=== PATIENT | male | born 1985 | race Caucasian/White ===

== ENCOUNTER 2016-11-15 00:12 | Day surgery (SDC) | payer BC, OTHER ==
[2016-11-15] MEDS ORDERED: HYDROmorphone 1 MG/ML Syringe IVPUSH ONE (00:42)
[2016-11-15] MEDS ORDERED: Ondansetron 4 MG/2 ML SDV IVPUSH ONE (00:42)
[2016-11-15] MEDS ORDERED: Sodium Chloride 0.9% 1,000 ML IV SCH (00:45)
--- NOTE | 2016-11-15 00:49 | EDM.PDOC ---
ED HPI GENERAL MEDICAL PROBLEM - General Chief Complaint: Abdominal Pain Stated Complaint: right side pains Time Seen by Provider: 11/15/16 00:20 Source of Information: Reports: Patient, Family (), RN Notes Reviewed History Limitations: Reports: No Limitations - History of Present Illness INITIAL COMMENTS - FREE TEXT/NARRATIVE: The patient states that he went to bed around 21:00 because he had some abdominal discomfort and nausea. He states that he woke around 23:30 with right lower quadrant pain, initially dull in character, but it has become sharp. The pain is present even if he remains perfectly still, but is made worse if he stands, or with movement. He states that he has had shaking chills, but no known fever. He also reports some nonbloody diarrhea since yesterday. No urinary symptoms. No prior similar symptoms. The patient has not tried any home remedies or medicines. The patient's last oral solid food was at 19:00 tonight, his last oral liquid was at 21:00 tonight. The patient's PCP is Dr. Rhonda Chang. Right Lower Abdomen Pain Score (Numeric/FACES): 8 - Related Data Allergies Allergy/AdvReac Type Severity Reaction Status Date / Time No Known Allergies Allergy Verified 11/15/16 00:23 Home Meds: Home Meds Eszopiclone [Lunesta] 1 mg PO BEDTIME PRN 11/15/16 [History] Past Medical History HEENT History: Reports: Impaired Vision Cardiovascular History: Reports: Other (See Below) (Elevated triglycerides) Dermatologic History: Reports: Eczema - Past Surgical History HEENT Surgical History: Reports: Naso-Sinus Surgery, Oral Surgery ([place] teeth extraction), Other (See Below) (Maxillofacial reconstructive surgery) GI Surgical History: Reports: Hernia, Abdominal (umbilical) Musculoskeletal Surgical History: Reports: Shoulder Surgery (right, arthroscopic ) Social & Family History - Family History Family Medical History: Noncontributory - Tobacco Use Smoking Status *Q: Never Smoker - Caffeine Use Caffeine Use: Reports: Soda - Alcohol Use Alcohol Use History: Yes Alcohol Use Frequency: Socially - Recreational Drug Use Recreational Drug Use: No - Living Situation & Occupation Living situation: Reports: , with Spouse Occupation: Employed (industrial relations director) ED ROS GENERAL - Review of Systems Review Of Systems: See Below Constitutional: Reports: No Symptoms HEENT: Reports: No Symptoms Respiratory: Reports: No Symptoms Cardiovascular: Reports: No Symptoms Endocrine: Reports: No Symptoms GI/Abdominal: Reports: No Symptoms : Reports: No Symptoms Musculoskeletal: Reports: No Symptoms Skin: Reports: No Symptoms Neurological: Reports: No Symptoms Psychiatric: Reports: No Symptoms Hematologic/Lymphatic: Reports: No Symptoms Immunologic: Reports: No Symptoms ED EXAM, GI/ABD - Physical Exam Exam: See Below Exam Limited By: No Limitations General Appearance: Alert, WD/WN, No Apparent Distress Eyes: Bilateral: Normal Appearance, EOMI Ears: Normal External Exam, Hearing Grossly Normal Nose: Normal Inspection, No Blood Throat/Mouth: Normal Inspection, Normal Lips, Normal Voice, No Airway Compromise Head: Atraumatic, Normocephalic Neck: Normal Inspection, Full Range of Motion Respiratory/Chest: No Respiratory Distress, Lungs Clear, Normal Breath Sounds, No Accessory Muscle Use Cardiovascular: Normal Peripheral Pulses, Regular Rate, Rhythm, No Gallop, No JVD, No Murmur, No Rub GI/Abdominal Exam: Soft, Non-Tender, No Organomegaly, No Distention, No Abnormal Bruit, No Mass, Pelvis Stable, Guarding, Tender (Significant, with involuntary guarding, to the right lower quadrant only. Nontender elsewhere, however, Rovsing sign is present. No rebound tenderness. Obturator sign negative. Psoas sign negative. Heel drop sign positive.), Abnormal Bowel Sounds (decreased). No: Rigid, Rebound (Male) Exam: Deferred Rectal (Males) Exam: Deferred Back Exam: Normal Inspection, Full Range of Motion. No: CVA Tenderness (L), CVA Tenderness (R) Extremities: Normal Inspection, Normal Range of Motion, No Pedal Edema, Normal Capillary Refill Neurological: Alert, Oriented, Normal Cognition, No Motor/Sensory Deficits Psychiatric: Normal Affect Skin Exam: Warm, Dry, Intact, Normal Color, No Rash Course - Vital Signs Last Recorded V/S: Last Vital Signs Temp 37.1 C 11/15/16 00:19 Pulse 101 H 11/15/16 00:19 Resp 18 11/15/16 00:19 BP 159/107 H 11/15/16 00:19 Pulse Ox 97 11/15/16 00:19 - Orders/Labs/Meds Orders: Active Orders 24 hr Category Date Time Status Abdomen Pelvis w Cont [CT] Stat Exams 11/15/16 00:42 Taken Sodium Chloride 0.9% [Normal Saline] 1,000 ml Med 11/15/16 00:45 Active IV ASDIRECTED Sodium Chloride 0.9% [Saline Flush] Med 11/15/16 02:05 Active 10 ml FLUSH ONETIME PRN Medication Orders Sodium Chloride (Normal Saline) 1,000 mls @ 150 mls/hr IV ASDIRECTED TEDDY Last Admin: 11/15/16 01:09 Dose: 150 mls/hr Sodium Chloride (Saline Flush) 10 ml FLUSH ONETIME PRN PRN Reason: IV Flush Last Admin: 11/15/16 02:25 Dose: 10 ml Labs: Laboratory Tests 11/15/16 11/15/16 11/15/16 Range/Units 01:00 01:00 02:05 WBC 8.78 (4.23-9.07) K/mm3 RBC 4.87 (4.63-6.08) M/mm3 Hgb 15.2 (13.7-17.5) gm/L Hct 43.0 (40.1-51.0) % MCV 88.3 (79.0-92.2) fl MCH 31.2 (25.7-32.2) pg MCHC 35.3 (32.2-35.5) g/dl RDW Std Deviation 41.9 (35.1-43.9) fL Plt Count 212 (163-337) K/mm3 MPV 9.6 (9.4-12.3) fl Neutrophils % (Manual) 75 H (40-60) % Band Neutrophils % 9 (0-10) % Lymphocytes % (Manual) 12 L (20-40) % Atypical Lymphs % 0 % Monocytes % (Manual) 2 (2-10) % Eosinophils % (Manual) 1 (0.8-7.0) % Basophils % (Manual) 1 (0.2-1.2) Platelet Estimate Adequate Plt Morphology Comment Normal RBC Morph Comment Normal Sodium 140 (136-145) mEq/L Potassium 3.6 (3.5-5.1) mEq/L Chloride 105 (98-107) mEq/L Carbon Dioxide 21 (21-32) mEq/L Anion Gap 17.6 H (5-15) BUN 17 (7-18) mg/dL Creatinine 1.2 (0.7-1.3) mg/dL Est Cr Clr Drug Dosing 90.01 mL/min Estimated GFR (MDRD) > 60 (>60) mL/min BUN/Creatinine Ratio 14.2 (14-18) Glucose 117 H (74-106) mg/dL Calcium 9.2 (8.5-10.1) mg/dL Total Bilirubin 0.9 (0.2-1.0) mg/dL AST 42 H (15-37) U/L ALT 62 (16-63) U/L Alkaline Phosphatase 61 (46-116) U/L Total Protein 7.4 (6.4-8.2) g/dl Albumin 3.9 (3.4-5.0) g/dl Globulin 3.5 gm/dL Albumin/Globulin Ratio 1.1 (1-2) Lipase 171 (73-393) U/L Urine Color Yellow (Yellow) Urine Appearance Clear (Clear) Urine pH 5.5 (5.0-8.0) Ur Specific [place] > or = 1.030 (1.005-1.030) Urine Protein Negative (Negative) Urine Glucose (UA) Negative (Negative) Urine Ketones Negative (Negative) Urine Occult Blood Negative (Negative) Urine Nitrite Negative (Negative) Urine Bilirubin Negative (Negative) Urine Urobilinogen 0.2 (0.2-1.0) Ur Leukocyte Esterase Negative (Negative) Urine RBC 0-5 (0-5) /hpf Urine WBC 0-5 (0-5) /hpf Ur Epithelial Cells Not seen (0-5) /hpf Urine Bacteria Not seen (FEW) /hpf Urine Mucus Many H (FEW) /hpf Meds: Medications Generic Name Dose Route Start Last Admin Trade Name Freq PRN Reason Stop Dose Admin Sodium Chloride 1,000 mls @ 150 mls/hr 11/15/16 00:45 11/15/16 01:09 Normal Saline IV 150 mls/hr ASDIRECTED TEDDY Administration Sodium Chloride 10 ml 11/15/16 02:05 11/15/16 02:25 Saline Flush FLUSH 10 ml ONETIME PRN Administration IV Flush Discontinued Medications Generic Name Dose Route Start Last Admin Trade Name Freq PRN Reason Stop Dose Admin Diatrizoate Meglum/Diatrizoate Sod 90 ml 11/15/16 02:05 11/15/16 02:25 Gastrografin 37% PO 11/15/16 02:06 90 ml ONETIME ONE Administration Hydromorphone HCl 1 mg 11/15/16 00:42 11/15/16 01:09 Dilaudid IVPUSH 11/15/16 00:43 0.5 mg ONETIME ONE Administration Iopamidol 125 ml 11/15/16 02:05 11/15/16 02:25 Isovue-300 (61%) IVPUSH 11/15/16 02:06 125 ml ONETIME ONE Administration Ondansetron HCl 4 mg 11/15/16 00:42 11/15/16 01:09 Zofran IVPUSH 11/15/16 00:43 4 mg ONETIME ONE Administration - Re-Assessments/Exams Free Text/Narrative Re-Assessment/Exam: 11/15/16 02:45 CT of the abdomen and pelvis with oral and IV contrast is read by [facility] as "Mild, uncomplicated acute appendicitis." 11/15/16 02:[address] Guerra at 02:48. He would like us to give the patient Mefoxin 2 g and Flagyl 500 mg. He would like us to call the or crew in, with the intention of taking the patient to the operating room for appendectomy tonight. The above was then discussed with the patient and his . They are agreeable with the plan. Departure - Departure Time of Disposition: 02:55 Disposition: DC/Tfer to [facility] Condition: Fair Clinical Impression: Acute appendicitis - Discharge Information - My Orders Last 24 Hours: My Active Orders 11/15/16 00:42 Abdomen Pelvis w Cont [CT] Stat 11/15/16 00:45 Sodium Chloride 0.9% [Normal Saline] 1,000 ml IV ASDIRECTED 11/15/16 02:05 Sodium Chloride 0.9% [Saline Flush] 10 ml FLUSH ONETIME PRN - Assessment/Plan Last 24 Hours: My Active Orders 11/15/16 00:42 Abdomen Pelvis w Cont [CT] Stat 11/15/16 00:45 Sodium Chloride 0.9% [Normal Saline] 1,000 ml IV ASDIRECTED 11/15/16 02:05 Sodium Chloride 0.9% [Saline Flush] 10 ml FLUSH ONETIME PRN
[2016-11-15] MEDS ORDERED: Diatrizoate Meglumine/Diatrizoate Sodium 37% 120 ML Bottle PO ONE (02:05)
[2016-11-15] MEDS ORDERED: Iopamidol 612 MG/ML 150 ML Bottle IVPUSH ONE (02:05)
[2016-11-15] MEDS ORDERED: Sodium Chloride 0.9% 10 ML Syringe FLUSH PRN (02:05)
[2016-11-15] MEDS ORDERED: cefOXitin 2 GM in Sodium Chloride 0.9% 100 ML IV ONE (02:51)
[2016-11-15] MEDS ORDERED: metroNIDAZOLE/Normal Saline 500 MG in Premix Bag 1 BAG IV ONE (02:51)
[2016-11-15] MEDS ORDERED: cefOXitin 2 GM in Premix Bag 1 BAG IV ONE (03:03)
[2016-11-15] MEDS ORDERED: Metoclopramide 10 MG/2 ML SDV IVPUSH PRN (03:15)
[2016-11-15] MEDS ORDERED: Famotidine 20 MG/2 ML SDV ONE (03:21)
[2016-11-15] MEDS ORDERED: Metoclopramide 10 MG/2 ML SDV ONE (03:24)
[2016-11-15] MEDS ORDERED: Bupivacaine 0.5% 30 ML SDV ONE (03:27)
[2016-11-15] MEDS ORDERED: Propofol 200 MG/20 ML SDV ONE (03:43)
[2016-11-15] MEDS ORDERED: fentaNYL 250 MCG/5 ML SDV ONE (03:43)
[2016-11-15] MEDS ORDERED: Midazolam 1 MG/ML 2 ML SDV ONE (03:43)
--- NOTE | 2016-11-15 03:46 | PCM.PREANE ---
Preanesthetic Assessment - Anesthesia/Transfusion/Family Hx Anesthesia History: Prior Anesthesia Without Reaction Family History of Anesthesia Reaction: No Intubation History: Unknown - Review of Systems General: No Symptoms Pulmonary: No Symptoms Cardiovascular: No Symptoms Gastrointestinal: Abdominal Pain Other: Reports: None - Physical Assessment NPO Status Date: 11/14/16 NPO Status Time: 21:00 O2 Sat by Pulse Oximetry: 97 Respiratory Rate: 18 Vital Signs: Last Vital Signs Temp 36.3 C 11/15/16 03:13 Pulse 80 11/15/16 03:13 Resp 18 11/15/16 03:13 BP 148/97 H 11/15/16 03:13 Pulse Ox 97 11/15/16 03:13 Height: 1.75 m Weight: 92.986 kg ASA Class: 2 Mental Status: Alert & Oriented x3 Airway Class: Mallampati = 2 Dentition: Reports: Normal Dentition Thyro-Mental Finger Breadths: 3 Mouth Opening Finger Breadths: 3 ROM/Head Extension: Full Lungs: Clear to Auscultation, Normal Respiratory Effort Cardiovascular: Regular Rate, Regular Rhythm - Lab Values: Laboratory Last Values WBC 8.78 K/mm3 (4.23-9.07) 11/15/16 01:00 RBC 4.87 M/mm3 (4.63-6.08) 11/15/16 01:00 Hgb 15.2 gm/L (13.7-17.5) 11/15/16 01:00 Hct 43.0 % (40.1-51.0) 11/15/16 01:00 MCV 88.3 fl (79.0-92.2) 11/15/16 01:00 MCH 31.2 pg (25.7-32.2) 11/15/16 01:00 MCHC 35.3 g/dl (32.2-35.5) 11/15/16 01:00 RDW Std Deviation 41.9 fL (35.1-43.9) 11/15/16 01:00 Plt Count 212 K/mm3 (163-337) 11/15/16 01:00 MPV 9.6 fl (9.4-12.3) 11/15/16 01:00 Neutrophils % (Manual) 75 % (40-60) H 11/15/16 01:00 Band Neutrophils % 9 % (0-10) 11/15/16 01:00 Lymphocytes % (Manual) 12 % (20-40) L 11/15/16 01:00 Atypical Lymphs % 0 % 11/15/16 01:00 Monocytes % (Manual) 2 % (2-10) 11/15/16 01:00 Eosinophils % (Manual) 1 % (0.8-7.0) 11/15/16 01:00 Basophils % (Manual) 1 (0.2-1.2) 11/15/16 01:00 Platelet Estimate Adequate 11/15/16 01:00 Plt Morphology Comment Normal 11/15/16 01:00 RBC Morph Comment Normal 11/15/16 01:00 Sodium 140 mEq/L (136-145) 11/15/16 01:00 Potassium 3.6 mEq/L (3.5-5.1) 11/15/16 01:00 Chloride 105 mEq/L (98-107) 11/15/16 01:00 Carbon Dioxide 21 mEq/L (21-32) 11/15/16 01:00 Anion Gap 17.6 (5-15) H 11/15/16 01:00 BUN 17 mg/dL (7-18) 11/15/16 01:00 Creatinine 1.2 mg/dL (0.7-1.3) 11/15/16 01:00 Est Cr Clr Drug Dosing 90.01 mL/min 11/15/16 01:00 Estimated GFR (MDRD) > 60 mL/min (>60) 11/15/16 01:00 BUN/Creatinine Ratio 14.2 (14-18) 11/15/16 01:00 Glucose 117 mg/dL (74-106) H 11/15/16 01:00 Calcium 9.2 mg/dL (8.5-10.1) 11/15/16 01:00 Total Bilirubin 0.9 mg/dL (0.2-1.0) 11/15/16 01:00 AST 42 U/L (15-37) H 11/15/16 01:00 ALT 62 U/L (16-63) 11/15/16 01:00 Alkaline Phosphatase 61 U/L (46-116) 11/15/16 01:00 Total Protein 7.4 g/dl (6.4-8.2) 11/15/16 01:00 Albumin 3.9 g/dl (3.4-5.0) 11/15/16 01:00 Globulin 3.5 gm/dL 11/15/16 01:00 Albumin/Globulin Ratio 1.1 (1-2) 11/15/16 01:00 Lipase 171 U/L (73-393) 11/15/16 01:00 Urine Color Yellow (Yellow) 11/15/16 02:05 Urine Appearance Clear (Clear) 11/15/16 02:05 Urine pH 5.5 (5.0-8.0) 11/15/16 02:05 Ur Specific [place] > or = 1.030 (1.005-1.030) 11/15/16 02:05 Urine Protein Negative (Negative) 11/15/16 02:05 Urine Glucose (UA) Negative (Negative) 11/15/16 02:05 Urine Ketones Negative (Negative) 11/15/16 02:05 Urine Occult Blood Negative (Negative) 11/15/16 02:05 Urine Nitrite Negative (Negative) 11/15/16 02:05 Urine Bilirubin Negative (Negative) 11/15/16 02:05 Urine Urobilinogen 0.2 (0.2-1.0) 11/15/16 02:05 Ur Leukocyte Esterase Negative (Negative) 11/15/16 02:05 Urine RBC 0-5 /hpf (0-5) 11/15/16 02:05 Urine WBC 0-5 /hpf (0-5) 11/15/16 02:05 Ur Epithelial Cells Not seen /hpf (0-5) 11/15/16 02:05 Urine Bacteria Not seen /hpf (FEW) 11/15/16 02:05 Urine Mucus Many /hpf (FEW) H 11/15/16 02:05 - Allergies Allergies/Adverse Reactions: Allergies Allergy/AdvReac Type Severity Reaction Status Date / Time No Known Allergies Allergy Verified 11/15/16 00:23 - Anesthesia Plan Pre-Op Medication Ordered: Antacids, Anxiolytic - Acknowledgements Anesthesia Type Planned: General Anesthesia Pt an Appropriate Candidate for the Planned Anesthesia: Yes Alternatives and Risks of Anesthesia Discussed w Pt/Guardian: Yes Pt/Guardian Understands and Agrees with Anesthesia Plan: Yes PreAnesthesia Questionnaire HEENT History: Reports: Impaired Vision Cardiovascular History: Reports: Other (See Below) (Elevated triglycerides) Dermatologic History: Reports: Eczema - Past Surgical History HEENT Surgical History: Reports: Naso-Sinus Surgery, Oral Surgery ([place] teeth extraction), Other (See Below) (Maxillofacial reconstructive surgery) GI Surgical History: Reports: Hernia, Abdominal (umbilical) Musculoskeletal Surgical History: Reports: Shoulder Surgery (right, arthroscopic ) - SUBSTANCE USE Smoking Status *Q: Never Smoker Recreational Drug Use History: No - HOME MEDS Home Medications: Home Meds Eszopiclone [Lunesta] 1 mg PO BEDTIME PRN 11/15/16 [History] - CURRENT (IN HOUSE) MEDS Current Meds: Current Medications Bupivacaine HCl (Marcaine 0.5%) Confirm Administered Dose 30 ml .ROUTE .STK-MED ONE Stop: 11/15/16 03:28 Sodium Chloride (Normal Saline) 1,000 mls @ 150 mls/hr IV ASDIRECTED [facility] Last Admin: 11/15/16 01:09 Dose: 150 mls/hr Metronidazole 500 mg/ Premix 100 mls @ 100 mls/hr IV ONETIME ONE Stop: 11/15/16 03:50 Last Admin: 11/15/16 03:01 Dose: 100 mls/hr Metoclopramide HCl (Reglan) 10 mg IVPUSH ONETIME PRN PRN Reason: Nausea/Vomiting Last Admin: 11/15/16 03:23 Dose: 10 mg Sodium Chloride (Saline Flush) 10 ml FLUSH ONETIME PRN PRN Reason: IV Flush Last Admin: 11/15/16 02:25 Dose: 10 ml Discontinued Medications Diatrizoate Meglum/Diatrizoate Sod (Gastrografin 37%) 90 ml PO ONETIME ONE Stop: 11/15/16 02:06 Last Admin: 11/15/16 02:25 Dose: 90 ml Famotidine (Pepcid) Confirm Administered Dose 20 mg .ROUTE .STK-MED ONE Stop: 11/15/16 03:22 Fentanyl (Sublimaze) Confirm Administered Dose 250 mcg .ROUTE .STK-MED ONE Stop: 11/15/16 03:44 Hydromorphone HCl (Dilaudid) 1 mg IVPUSH ONETIME ONE Stop: 11/15/16 00:43 Last Admin: 11/15/16 01:09 Dose: 0.5 mg Cefoxitin Sodium 2 gm/ Sodium (Chloride) 100 mls @ 200 mls/hr IV ONETIME ONE Stop: 11/15/16 03:20 Cefoxitin Sodium 2 gm/ Premix 50 mls @ 100 mls/hr IV ONETIME ONE Stop: 11/15/16 03:32 Last Admin: 11/15/16 03:11 Dose: 100 mls/hr Cefoxitin Sodium (Mefoxin In Dextrose,Iso-Osm 2 Gm/50 Ml) Confirm Administered Dose 50 mls @ as directed .ROUTE .STK-MED ONE Stop: 11/15/16 03:05 Last Admin: 11/15/16 03:04 Dose: Not Given Iopamidol (Isovue-300 (61%)) 125 ml IVPUSH ONETIME ONE Stop: 11/15/16 02:06 Last Admin: 11/15/16 02:25 Dose: 125 ml Metoclopramide HCl (Reglan) Confirm Administered Dose 10 mg .ROUTE .STK-MED ONE Stop: 11/15/16 03:25 Last Admin: 11/15/16 03:23 Dose: Not Given Midazolam HCl (Versed 1 Mg/Ml) Confirm Administered Dose 2 mg .ROUTE .STK-MED ONE Stop: 11/15/16 03:44 Ondansetron HCl (Zofran) 4 mg IVPUSH ONETIME ONE Stop: 11/15/16 00:43 Last Admin: 11/15/16 01:09 Dose: 4 mg Propofol (Diprivan 20 Ml) Confirm Administered Dose 400 mg .ROUTE .STK-MED ONE Stop: 11/15/16 03:44
--- NOTE | 2016-11-15 04:13 | HP ---
DATE OF ADMISSION: 11/15/2016 HISTORY OF PRESENT ILLNESS: This is a 31-year-old who presents to the emergency room with right lower quadrant pain. He had some abdominal discomfort, went to bed at about 9 o'clock and then woke up later at about 11:30 with pain in the right lower quadrant. He had some loss of appetite, little bit nausea, some chills. Came into the ER, where a CT scan showed early appendicitis. White count was normal at 8000. PAST MEDICAL HISTORY: He has been in good health. He had elevated triglycerides. PAST SURGICAL HISTORY: Oral surgery, maxillofacial reconstruction some years ago, history of umbilical hernia surgery, and shoulder surgery repair on the right. FAMILY HISTORY: Negative. SOCIAL HISTORY: Never smoked. Does socially drink. No recreational drugs. REVIEW OF SYSTEMS: Has had a little diarrhea. No chest pain, shortness of breath, cough, hoarseness, wheezing, fainting, weakness, numbness, or convulsions. Does have a little bit nausea. PHYSICAL EXAMINATION: GENERAL: Alert and cooperative male. VITAL SIGNS: Temperature 37 degrees centigrade, pulse 101, respirations 18, blood pressure 159/107. EYES: Sclerae white. Extraocular muscle motion normal. ORAL CAVITY: Healthy mucous membrane with mouth and tongue. NECK: Supple. No nodes. No thyromegaly. Trachea midline. LUNGS: Clear. No rales, rhonchi, fremitus, dullness. HEART: Tones regular. Shows low sinus tachycardia. No murmurs. No S3, S4, or jugular venous distention. ABDOMEN: Shows tenderness and guarding over McBurney's point. Rovsing sign is negative. Psoas sign is negative. UPPER AND LOWER EXTREMITIES: No angulation deformities. NEUROLOGIC: III through XII cranial nerves intact. No sensorineural deficit. Moves all 4 extremities. SKIN: Normal. PSYCH: Normal. ASSESSMENT: Acute appendicitis. PLAN: For laparoscopic appendectomy. Discussed the procedure, risks, and complications. The patient understands and consents. QI /[id number]
[2016-11-15] MEDS ORDERED: Lactated Ringers 1,000 ML ONE (04:27)
[2016-11-15] MEDS ORDERED: HYDROmorphone 0.5 MG/0.5 ML Syringe IVPUSH PRN (04:33)
[2016-11-15] MEDS ORDERED: Meperidine PF 50 MG/ML Syringe IVPUSH PRN (04:33)
[2016-11-15] MEDS ORDERED: diphenhydrAMINE 50 MG/ML SDV IVPUSH PRN (04:33)
[2016-11-15] MEDS ORDERED: fentaNYL 100 MCG/2 ML SDV IVPUSH PRN (04:33)
[2016-11-15] MEDS ORDERED: Haloperidol Lactate 5 MG/ML SDV IVPUSH ONE (04:33)
[2016-11-15] MEDS ORDERED: Ondansetron 4 MG/2 ML SDV IVPUSH PRN (04:33)
[2016-11-15] MEDS ORDERED: HYDROmorphone 1 MG/ML Syringe ONE (04:58)
--- NOTE | 2016-11-15 05:15 | PCM.OPNOTE ---
- General Post-Op/Procedure Note Date of Surgery/Procedure: 11/15/16 Operative Procedure(s): lap appy Findings: acute appendicitis Pre Op Diagnosis: acute appendicitis Post-Op Diagnosis: Same Anesthesia Technique: General ET Tube Primary Surgeon: Mo Guerra EBL in mLs: 25 Complications: None Condition: Good Free Text/Narrative:: Intake & Output 11/14/16 11/14/16 11/15/16 15:59 23:59 07:59 Intake Total 950 Balance 950
[2016-11-15] MEDS ORDERED: fentaNYL 100 MCG/2 ML SDV ONE (05:20)
--- NOTE | 2016-11-15 05:27 | PCM.POSTAN ---
POST ANESTHESIA ASSESSMENT - MENTAL STATUS Mental Status: Alert, Oriented - VITAL SIGNS Pulse Rate: 108 SaO2: 98 Resp Rate: 16 Blood Pressure: 168/106 Temperature: 36.2 C - RESPIRATORY Respiratory Status: Respiratory Rate WNL, Airway Patent, O2 Saturation Stable, Supplemental Oxygen - CARDIOVASCULAR CV Status: Pulse Rate WNL, Blood Pressure Stable - GASTROINTESTINAL GI Status: No Symptoms - PAIN Pain Score: 0 - POST OP HYDRATION Hydration Status: Adequate & Stable
[2016-11-15] MEDS ORDERED: Phenylephrine 1% 10 MG/ML SDV ONE (05:48)
[2016-11-15] MEDS ORDERED: Ketorolac 30 MG/ML SDV ONE (05:48)
[2016-11-15] MEDS ORDERED: Rocuronium 50 MG/5 ML Vial ONE (05:48)
[2016-11-15] MEDS ORDERED: Succinylcholine 200 MG/10 ML MDV ONE (05:48)
--- NOTE | 2016-11-15 05:48 | PCM48HPAN ---
Post Anesthesia Note - EVALUATION WITHIN 48HRS OF ANESTHETIC Vital Signs in Normal Range: Yes Patient Participated in Evaluation: Yes Respiratory Function Stable: Yes Airway Patent: Yes Cardiovascular Function Stable: Yes Hydration Status Stable: Yes Pain Control Satisfactory: Yes Nausea and Vomiting Control Satisfactory: Yes Mental Status Recovered: Yes
[2016-11-15] MEDS ORDERED: Labetalol 100 MG/20 ML MDV ONE (05:52)
[2016-11-15] MEDS ORDERED: Acetaminophen/HYDROcodone 325-5 MG Tab PO PRN (06:02)
[2016-11-15 06:13] VITALS: BP 129/93
--- NOTE | 2016-11-15 07:23 | CT ---
CT abdomen and pelvis Technique: Multiple axial sections were obtained from above the dome of the diaphragm inferiorly through the pubic symphysis. Intravenous and oral contrast was utilized. Delayed images were obtained through the bladder. Findings: Appendix is slightly prominent in size and contains several appendicoliths. Appendiceal wall is slightly hazy and findings are felt compatible with early appendicitis. No abscess is seen. Visualized lung bases show nothing acute. Liver shows no focal parenchymal abnormality. Spleen appears within normal limits. Adrenal glands show no nodule. Kidneys show symmetric contrast enhancement without hydronephrosis or mass. Pancreas appears within normal limits. Gallbladder shows no calcified gallstones. Aorta shows no aneurysmal dilatation. No retroperitoneal adenopathy or mesenteric abnormalities are seen. No pelvic mass or adenopathy is seen. Small amount of contrast reflux is seen into the distal esophagus. Delayed images show contrast within the bladder. Bone window settings were reviewed which appear within normal limits for the patient's age. Impression: 1. Findings compatible with early appendicitis. 2. Other incidental findings as noted above. Diagnostic code #5 Agree with preliminary report issued by [facility] ([facility] preliminary report dictated on 11/15/16, 3:39 AM Central Time)
--- NOTE | 2016-11-15 09:06 | OR ---
DATE OF OPERATION: 11/15/2016 SURGEON: Mo Guerra MD PREOPERATIVE DIAGNOSIS: Acute appendicitis. POSTOPERATIVE DIAGNOSIS: Acute appendicitis. OPERATION PERFORMED: Laparoscopic appendectomy done under general anesthetic. ESTIMATED BLOOD LOSS: About 25 mL. DESCRIPTION OF PROCEDURE: The patient taken to the operating room, placed in the supine position, connected to monitoring equipment, given induction and general anesthetic, and intubated. Antibiotics were given. SCDs were placed. The abdomen was clipped and prepped with DuraPrep and draped off in a sterile fashion. Incision was made just above the umbilicus and carried down by sharp dissection to the fascia. The fascia was opened. Abdominal cavity entered. Ángel trocar placed, secured with stay sutures. Pneumoperitoneum established. A 5 mm 30- degree camera was inserted and the abdominal cavity was scanned showing omentum around the umbilicus attached to the undersurface of the umbilicus. A 5-mm trocar placed in the right upper quadrant, one in the right lower quadrant and the appendix was identified. The patient placed in steep Trendelenburg with leftward tilt. A window in the mesoappendix was made and the Ethicon Endo- ligator was inserted through that window, fired, and the appendix from the cecum. Another firing of the Endo-ligator the mesoappendix from the appendix and it was placed in an Endobag and removed from the abdominal cavity. Pneumoperitoneum re-established. The area was checked and a small amount of clot was formed around the mesoappendix. This was aspirated, irrigated, and no bleeding was noted. This completed the intraabdominal portion. Pneumoperitoneum was removed and the port in the right lower quadrant was removed and bled. It was elected to reinsert the camera where the bleeding from the port was noted in the abdominal cavity. A port closure technique was used using 2-0 Vicryl suture and the bleeding stopped. The area was then irrigated again removing all of the small amount of blood that resulted and the area was checked and watched and no bleeding from the port. This completed the intraabdominal portion of the procedure. Pneumoperitoneum and remaining port was removed and the umbilical port was closed with a running 0 Ethibond suture in a transverse fashion and the skin of each ports closed with interrupted 3-0 Vicryl suture. Steri-Strips and sterile dressing placed and 0.5% Marcaine infiltrated in each incision. Sterile dressing. The patient tolerated the procedure, was sent to recovery room in a stable condition, and will be followed up in the clinic. ANESTHESIA: General anesthesia. QI /[id number]
== END 2016-11-15 06:37 | disposition home or self-care (01) ==
LOC: JD.ED 00:12 → JD.SDS 03:20
PROVIDERS: ATTEND Surgery
DX: K35.80 Unspecified acute appendicitis (principal); Z98.890 Other specified postprocedural states
CPT/HCPCS: 36415; 44970; 74177; 80053; 81001; 83690; 85025; 96361; 96365; 96368; 96375; 99285; A9270; J0330; J0694; J1170; J1885; J2250; J2405; J2765; J3010; J7040; J7050; J7120; Q9963; Q9967; 00840; J2370; J2704

== ENCOUNTER 2018-07-10 15:32 | Emergency (ER) | payer OTHER ==
[2018-07-10] MEDS ORDERED: predniSONE 20 MG Tab PO ONE (16:26)
--- NOTE | 2018-07-10 16:42 | EDM.PDOC ---
ED HPI GENERAL MEDICAL PROBLEM - General Chief Complaint: Back Pain or Injury Stated Complaint: BACK PAIN Time Seen by Provider: 07/10/18 15:39 Source of Information: Reports: Patient History Limitations: Reports: No Limitations - History of Present Illness INITIAL COMMENTS - FREE TEXT/NARRATIVE: 32 yo M comes in today for lower back pain after being diagnosed with herniated disc yesterday via MRI ordered by his Chiropractor, Kavon Vogel. He states he has been having back pain for over 1 year and and it worsened about 6 weeks ago. He only sees chiropractors for this, recently switched chiropractors about 3 weeks ago. His new chiropractor decided he needed an MRI which he got yesterday. His chiropractor is now out of town and won't be back until Sunday, which is when he will set up an appointment with a neurologist, so he states he needs pain management until then. He does not have a primary care provider bc " I hardly ever go to the doctor". Right now he currently c/o 9-10/10 pain in lower back that radiates down left leg, difficulty walking/putting socks on/ sleeping d/t pain, numbness/tingling down the left leg to the knee. He states the pain is better with standing and movement, worse with sitting and staying still. He has only taken Aleve at home with little relief. No other concerns at this time. No PCP. Will refer him to one. Back Pain Score (Numeric/FACES): 9 - Related Data Allergies Allergy/AdvReac Type Severity Reaction Status Date / Time No Known Allergies Allergy Verified 07/10/18 15:41 Home Meds: Home Meds Eszopiclone [Lunesta] 1 mg PO BEDTIME PRN 11/15/16 [History] Orphenadrine [Norflex] 100 mg PO BID PRN #6 tab 07/10/18 [Rx] Past Medical History HEENT History: Reports: Impaired Vision Cardiovascular History: Reports: Other (See Below) Dermatologic History: Reports: Eczema - Past Surgical History HEENT Surgical History: Reports: Naso-Sinus Surgery, Oral Surgery, Other (See Below) GI Surgical History: Reports: Hernia, Abdominal Musculoskeletal Surgical History: Reports: Shoulder Surgery Social & Family History - Family History Family Medical History: Noncontributory - Tobacco Use Smoking Status *Q: Never Smoker - Caffeine Use Caffeine Use: Reports: Soda - Living Situation & Occupation Living situation: Reports: , with Spouse Occupation: Employed (publication director) ED ROS GENERAL - Review of Systems Review Of Systems: ROS reveals no pertinent complaints other than HPI. ED EXAM,LOWER BACK PAIN/INJURY - Physical Exam Exam: See Below Exam Limited By: No Limitations General Appearance: Alert, WD/WN, Moderate Distress Eye Exam: Bilateral Eye: EOMI, Normal Inspection, PERRL Ears: Normal External Exam, Hearing Grossly Normal Head: Atraumatic, Normocephalic Neck: Normal Inspection, Supple, Non-Tender, Full Range of Motion. No: Tender Lateral, Tender Midline Back Exam: Decreased Range of Motion, Muscle Spasm (lower lumbar region, mostly to the left side). No: Paraspinal Tenderness, Vertebral Tenderness Neurological: Alert, Normal Mood/Affect, Normal Dorsiflexion, CN II-XII Intact, Normal Plantar Flexion, Normal Reflexes, No Motor/Sensory Deficits, Oriented x 3 , Abnormal Gait (2/2 pain). No: Saddle Anesthesia Psychiatric: Normal Affect, Normal Mood Skin Exam: Warm, Dry, Intact, Normal Color, No Rash Course - Vital Signs Last Recorded V/S: Last Vital Signs Temp 97.5 F 07/10/18 15:38 Pulse 82 07/10/18 15:38 Resp 16 07/10/18 15:38 BP 132/95 H 07/10/18 15:38 Pulse Ox 96 07/10/18 15:38 - Orders/Labs/Meds Meds: Medications Discontinued Medications Generic Name Dose Route Start Last Admin Trade Name Aol PRN Reason Stop Dose Admin Prednisone 60 mg 07/10/18 16:26 Prednisone PO 07/10/18 16:27 ONETIME ONE - Re-Assessments/Exams Free Text/Narrative Re-Assessment/Exam: Report from MRI yesterday 07/09/18: 1. Large disc herniation at L4-L5 to the midline and to the left of midline displacing the adjacent nerve roots posteriorly. 2. Other less prominent degenerative change at L4-L5 and L5-S1 as noted above. Departure - Departure Time of Disposition: 16:38 Disposition: Home, Self-Care 01 Condition: Fair Clinical Impression: Lumbar herniated disc - Discharge Information *PRESCRIPTION DRUG MONITORING PROGRAM REVIEWED*: Yes *COPY OF PRESCRIPTION DRUG MONITORING REPORT IN PATIENT VANDANA: No Prescriptions: Orphenadrine [Norflex] 100 mg PO BID PRN #6 tab PRN Reason: back pain and spasm Instructions: Herniated Disk, [id number], Chronic Back Pain, [id number] Referrals: Susan North PA-C [Physician Window Machine Operator] - Isaiah Rangel MD [Ordering Only Provider] - Forms: ED Department Discharge Additional Instructions: You were seen in the ED today for lower back pain after being diagnosed with herniated lumbar disc yesterday. At this time, you were given Prednisone ( steroid) to help with inflammation. Because you are driving, will send prescription for muscle relaxer (Norflex 100mg twice per day as needed for pain ) and pain medication (Cal[place]oun every 4 hours as needed for pain) which you can take once at home. Will give you enough for the next day or so. Recommend you do not drive or go to work while taking these medications, as they will cause cognitive impairment. The ED is not the place for chronic pain management, so we have also set you an appointment with a primary care provider tomorrow () at our clinic here at [facility]. You will see Susan North PA-C at 10: 30am. She can then help you with pain management until you are able to see a neurosurgeon. You can also contact neurosurgeon Dr. Rangel in [place] to set an appointment as soon as possible for surgical consult. Please return to ED if new or worsening symptoms.
== END 2018-07-10 17:12 | disposition home or self-care (01) ==
LOC: JD.ED 15:32 → MERGE 15:32 → JD.ED 17:12
DX: M51.26 Other intervertebral disc displacement, lumbar region (principal); Z79.899 Other long term (current) drug therapy
CPT/HCPCS: 99283; A9270

== ENCOUNTER 2021-12-03 09:16 | Emergency (ER) | payer OTHER ==
[2021-12-03] MEDS ORDERED: Lactated Ringers 1,000 ML IV ONE (09:28)
[2021-12-03] MEDS ORDERED: Ondansetron 4 MG/2 ML SDV IVPUSH ONE (09:29)
[2021-12-03] MEDS ORDERED: Lactated Ringers 1,000 ML IV SCH (09:30)
[2021-12-03 09:55] LABS: ESTIMATED GFR 90 mL/min (>60)
[2021-12-03] MEDS ORDERED: Potassium Chloride 20 MEQ Tab.ER PO ONE (10:58)
== END 2021-12-03 11:30 | disposition home or self-care (01) ==
LOC: JD.ED 09:16
DX: S09.90XA Unspecified injury of head, initial encounter (principal); F10.129 Alcohol abuse with intoxication, unspecified; Z79.899 Other long term (current) drug therapy
CPT/HCPCS: 36415; 70450; 71260; 72125; 74177; 80053; 80306; 80307; 81003; 82947; 85025; 96361; 96374; 99285; A9270; J2405; J7120

== ENCOUNTER 2023-12-23 09:54 | Emergency (ER) | payer OTHER ==
[2023-12-23] MEDS ORDERED: Sodium Chloride 0.9% 10 ML Syringe FLUSH PRN (10:47)
[2023-12-23] MEDS: Metoclopramide 10 MG/2 ML SDV IVPUSH ONE (11:14)
[2023-12-23] MEDS: HYDROmorphone 1 MG/ML Syringe IVPUSH ONE ×2 (11:14→13:19)
[2023-12-23] MEDS: methylPREDNISolone Sodium Succinate 125 MG/2 ML SDV IVPUSH ONE (13:23)
== END 2023-12-23 13:40 | disposition home or self-care (01) ==
LOC: JD.ED 09:54
DX: M51.26 Other intervertebral disc displacement, lumbar region (principal); M51.17 Intervertebral disc disorders with radiculopathy, lumbosacral region
CPT/HCPCS: 72131; 72131-26; 96374; 96375; 96376; 99284; 99285-25; J1171; J2765; J2919